=== PATIENT | male | born 1955 | race Caucasian/White ===

== ENCOUNTER 2017-10-25 11:58 | Emergency (ER) | payer OTHER ==
[~2017-10-25] VITALS: Ht 190.5 cm; Wt 119.7 kg
[2017-10-25 12:04] VITALS: Ht 190.5 cm; Wt 119.7 kg
[2017-10-25 12:43] LABS: BASOPHIL % 0.5 % (0-2); PLATELET COUNT 254 x10^3mcL (130-400); RED CELL DISTRIBUTION WIDTH 13.9 % (11.5-14.5)
[2017-10-25 12:58] LABS: CALCIUM 8.2 mg/dL (8.5-10.1); CARBON DIOXIDE 26.3 mmol/L (21-32); CHLORIDE SERUM 102 mmol/L (98-107); CREATININE SERUM 0.9 mg/dL (0.7-1.3); GFR1 > 60 mL/min; GLUCOSE SERUM 116 mg/dL (74-106); POTASSIUM SERUM 3.8 mmol/L (3.5-5.1); SODIUM SERUM 136 mmol/L (136-145)
[2017-10-25 13:01] LABS: ALBUMIN 3.8 g/dL (3.4-5.0); ALKALINE PHOSPHATASE 72 U/L (46-116); ALT/SGPT 27 U/L (16-63); AST/SGOT 20 U/L (15-37); BILIRUBIN TOTAL 0.3 mg/dL (0.20-1.00); TOTAL PROTEIN, SERUM 7.3 g/dL (6.4-8.2)
[2017-10-25 13:45] VITALS: BP 142/92
== END 2017-10-25 13:45 | disposition home or self-care (01) ==
LOC: ED 11:58
PROVIDERS: Emergency Medicine
DX: F41.1 Generalized anxiety disorder (principal)
CPT/HCPCS: 36415; J2060; Q0092